=== PATIENT | male | born 1960 | race Caucasian/White ===

== ENCOUNTER 2018-12-01 14:27 | Emergency (ER) | payer OTHER ==
[2018-12-01] MEDS ORDERED: ASPIRIN 81 MG CHEWABLE TABLETS PO ONE (14:53)
[2018-12-01] MEDS ORDERED: ASPIRIN 81 MG CHEWABLE TABLETS ONE (15:03)
[2018-12-01 15:04] VITALS: BMI 19.9
--- NOTE | 2018-12-01 15:20 | PDOC ---
History of Present Illness - General Chief Complaint: Respiratory Stated Complaint: SHORT OF BREATH Time Seen by Provider: 12/01/18 14:32 History Source: Patient Exam Limitations: No Limitations - History of Present Illness Initial Comments: 12/01/18 15:15 Pt is a 58yo M with PMH of MM, Asthma, Neuropathy presenting to ED with complaints of SOB, chest pain and feet pain. Pt states he woke up this morning from a bad dream and felt short of breath and having substernal chest pain which feels like a pressure with some pain into the L arm and nausea. He thought he was having a panic attack and "took 1/3 of xananx". He did not feel better and decided to come to the ED. He denies fevers, chills, cough, sore throat, palpitations, abdominal pain, v/d/c, urinary symptoms, headache. He is mainly concerned about the pain in his feet which he states is the neuropathy acting up. Last chemotherapy was 2 years ago but was told protein levels were rising recently. Has an appointment on Tuesday with his oncologist at [facility]. PMD: PMH: see hpi PSH: back surgery, appendectomy Meds: oxycodone 10 Allergies: PCN, APAP Social: smokes around 3 cigarettes/day Past History - Past Medical History Allergies/Adverse Reactions: Allergies Allergy/AdvReac Type Severity Reaction Status Date / Time acetaminophen Allergy Intermediate Hives Verified 12/01/18 14:31 Penicillins Allergy Intermediate Vomiting Verified 12/01/18 14:31 Home Medications: Ambulatory Orders Lorazepam 2 mg PO BID 12/01/18 Oxycodone HCl 10 mg PO QID 12/01/18 Asthma: Yes COPD: No Other medical history: MULTIPLE MYELOMA NEUROPATHY - Surgical History Appendectomy: Yes - Suicide/Smoking/Psychosocial Hx Smoking History: Current some day smoker Have you smoked in the past 12 months: Yes Information on smoking cessation initiated: Yes Hx Alcohol Use: Yes (OCCASSIONAL) Drug/Substance Use Hx: No Review of Systems - Review of Systems Constitutional: No: Chills, Fever HEENTM: No: Symptoms Reported Respiratory: Yes: Cough, Shortness of Breath. No: Wheezing Cardiac (ROS): Yes: Chest Pain. No: Lightheadedness, Palpitations, Syncope ABD/GI: Yes: Nausea. No: Constipated, Diarrhea, Vomiting, Abdominal cramping : No: Symptoms Reported Musculoskeletal: No: Symptoms Reported Integumentary: No: Symptoms Reported Neurological: No: Symptoms reported *Physical Exam - Vital Signs Last Vital Signs Temp Pulse Resp BP Pulse Ox 98.1 F 89 20 162/103 H 100 12/01/18 14:30 12/01/18 14:30 12/01/18 14:30 12/01/18 14:30 12/01/18 14:30 - Physical Exam General Appearance: Yes: Nourished, Appropriately Dressed. No: Apparent Distress HEENT: positive: EOMI, ELMER, TMs Normal, Pharynx Normal Neck: positive: Trachea midline, Supple. negative: Lymphadenopathy (R), Lymphadenopathy (L) Respiratory/Chest: positive: Lungs Clear, Normal Breath Sounds. negative: Crackles, Rales, Rhonchi, Stridor, Wheezing Cardiovascular: positive: Regular Rhythm, Regular Rate, S1, S2. negative: Edema , JVD, Murmur Vascular Pulses: Carotid (R): 2+, Carotid (L): 2+, Dorsalis-Pedis (R): 2+, Doralis-Pedis (L): 2+ Gastrointestinal/Abdominal: positive: Normal Bowel Sounds, Soft. negative: Distended, Guarding, Rebound, Tenderness Musculoskeletal: positive: Normal Inspection. negative: CVA Tenderness Extremity: positive: Normal Capillary Refill, Pelvis Stable Integumentary: positive: Normal Color, Dry, Warm Neurologic: positive: medical transcription radiology II-XII NML intact, Fully Oriented, Alert, Normal Mood/ Affect, Normal Response, Motor Strength 5/5 Moderate Sedation - Procedure Monitoring Vital Signs: Procedure Monitoring Vital Signs Temperature 98.1 F 12/01/18 14:30 Pulse Rate 89 12/01/18 14:30 Respiratory Rate 20 12/01/18 14:30 Blood Pressure 162/103 H 12/01/18 14:30 O2 Sat by Pulse Oximetry (%) 100 12/01/18 14:30 Heart Score/ECG Review - History History: Slightly suspicious - Electrocardiogram EKG: Non specific repolarization disturbance - Age Age: 45-65 - Risk Factors Risk Factors Heart Score: Yes Smoking History Based on the list above the patient has:: 1-2 risk factors - Troponin Troponin: </= normal limit - Score Heart Score - Total: 3 ED Treatment Course - LABORATORY CBC & Chemistry Diagram: 12/01/18 15:15 12/01/18 15:15 - RADIOLOGY Radiology Studies Ordered: Category Date Time Status CHEST PA & LAT [RAD] Stat Radiology 12/01/18 14:36 Completed - Medications Given in the ED: ED Medications Discontinued Medications Generic Name Dose Route Start Last Admin Trade Name Trace PRN Reason Stop Dose Admin Aspirin 162 mg 12/01/18 14:53 12/01/18 15:06 Asa - PO 12/01/18 14:54 162 mg ONCE ONE Administration Medical Decision Making - Medical Decision Making 12/01/18 15:21 Pt is a 58yo M with PMH of MM, Asthma, Neuropathy presenting to ED with complaints of SOB, chest pain and feet pain. Pt states he woke up this morning from a bad dream and felt short of breath and having substernal chest pain which feels like a pressure with some pain into the L arm and nausea. He thought he was having a panic attack and "took 1/3 of xananx". He did not feel better and decided to come to the ED. He denies fevers, chills, cough, sore throat, palpitations, abdominal pain, v/d/c, urinary symptoms, headache. He is mainly concerned about the pain in his feet which he states is the neuropathy acting up. Last chemotherapy was 2 years ago but was told protein levels were rising recently. Has an appointment on Tuesday with his oncologist at [facility]. Vitals: wnl PE: normal exam ddx includes but not limited to acs, pna, pe, ptx, carditis, viral illness, GERD given pt history, pe is of concern, d-dimer sent. ACS workup ordered. ASA 162 given. PT reports feeling better after ASA CXR- no acute pathology EKG: nsr. no janes or depressions. no signs of acute ischema Labs: wnl. normal d-dimer, normal troponin. HEART score 3. Will order second troponin. Second trop negative. Pt is hemodynamically stable, low HEART score. Can be dc home. Pt has pmd and fitter armament. recommended follow up. *DC/Admit/Observation/Transfer Diagnosis at time of Disposition: Shortness of breath Chest pain Qualifiers: Chest pain type: unspecified Qualified Code(s): R07.9 - Chest pain, unspecified - Discharge Dispostion Disposition: HOME Condition at time of disposition: Improved Decision to Admit order: No - Referrals - Patient Instructions Printed Discharge Instructions: DI for Shortness of Breath, DI for Chest Pain Additional Instructions: You were seen here in the emergency room for chest pain and shortness of breath. Your lab tests, EKG and xray were normal. I highly recommend you make an appointment with your primary care doctor and/or [facility] for further evaluation and management of your symptoms. You can take 81mg Aspirin when you feel the chest pains. Remember to keep your appointment with your oncologist on Tuesday. Come back to the emergency room if chest pain returns, you feel short of breath , you cough up blood, develop fever, you pass out or if any new concerning symptom develops. Thank you - Post Discharge Activity
[2018-12-01 15:41] LABS: INR 1.11 (0.82-1.09); PROTHROMBIN TIME (PATIENT) 12.4 SEC (10.2-13.0)
[2018-12-01 16:03] LABS: BASO % 0.4 % (0-2.0); EOS % 0.7 % (0-4.5); HEMATOCRIT 46.8 % (35.4-49); HEMOGLOBIN 15.6 GM/dl (11.7-16.9); LYMPH % 23.7 % (8-40); MCH 31.9 pg (25.7-33.7); MCHC 33.4 g/dl (32.0-35.9); MEAN CELL VOLUME 95.5 fl (80-96); MEAN PLT VOLUME 7.8 fl (7.5-11.1); MONO % 4.3 % (3.8-10.2); NEUT % 70.9 % (42.8-82.8); PLATELET COUNT 237 K/MM3 (134-434); RBC 4.89 M/mm3 (4.00-5.60); RDW 14.6 % (11.9-15.9); WHITE BLOOD COUNT 7.9 K/mm3 (4.0-10.8)
[2018-12-01 16:08] LABS: ALBUMIN 4.6 g/dl (3.4-5.0); ALK PHOS 100 U/L (45-117); ANION GAP 8 MMOL/L (8-16); BLOOD UREA NITROGEN 11 mg/dl (7-18); CALCIUM 9.8 mg/dl (8.5-10); CHLORIDE 104 mmol/L (98-107); CO2 22 mmol/L (21-32); CREATININE 0.9 mg/dl (0.55-1.3); GLUCOSE,RANDOM 95 mg/dl (74-106); POTASSIUM 3.5 mmol/L (3.5-5.1); SGOT/AST 22 U/L (15-37); SGPT/ALT 16 U/L (13-61); SODIUM 134 mmol/L (136-145)
--- NOTE | 2018-12-01 18:33 | PDOC ---
Attending Attestation - Resident Resident Name: Chanel Peacock - ED Attending Attestation I have performed the following: I have examined & evaluated the patient, The case was reviewed & discussed with the resident, I agree w/resident's findings & plan - HPI HPI: 12/01/18 18:30 58 YOM with h/o multiple myeloma in remission presenting with CP and SOB since this morning, substernal chest pressure, a/w left arm discomfort. Unable to take a deep breath. +nausea. no cough or congestion. had PNA previously with similar sx at [facility], has been on courses of Zpak Last chemo ~2 years ago. Has oncologist at [facility] 12/01/18 18:31 - Physicial Exam PE: 12/01/18 18:30 NAD, well appearing, PERRL, EOMI, MMM, nl conjunctiva, anicteric; neck supple. lungs clear, RRR, abdomen soft nontender. GODINEZ x4, no focal neuro deficits. No peripheral edema. normal color for ethnicity, WWP. - Medical Decision Making 12/01/18 18:31 VS with mild hypertension, normal HR DDx chest pain: ACS, coronary vasospasm, NSTEMI, arrhythmia, unstable angina, PE , dissection, PUD, esophageal spasm, GERD, gastritis, costochondritis, pneumonia , pleurisy, pericarditis/myocarditis. dehydration, electrolyte/metabolic derangements. EKG normal sinus rhythm, no interval abnormalities, narrow QRS, ST and T wave segments and morphology normal. Nonspecific T wave abnormalities, lead III only with some flattening, no contiguous lead changes heart score 1 low risk. chest pain free well appearing, no other sx. EKG nonischemic trops neg x2, less likely cardiac remainder of labs and lytes normal Dimer neg, so unlikely PE or dissection with clinical findings. no sob or syncope/dizziness. Pt informed of my clinical impression, treatment recommendations and disposition plan. All questions answered to patient's satisfaction and expressed understanding and comfort with this. Reasons for returning to the ED sooner discussed with the patient otherwise, follow up with primary care physician. At the time of discharge, the patient is alert, clinically improved, tolerating po and verbalizes understanding of instructions. Patient does not suffer from an acute life-threatening medical condition at this time he is safe for outpatient follow-up. 12/01/18 18:32 12/01/18 18:33 Heart Score/ECG Review - History History: Slightly suspicious - Electrocardiogram EKG: Normal - Age Age: 45-65 - Risk Factors Based on the list above the patient has:: No risk factors known - Troponin Troponin: </= normal limit - Score Heart Score - Total: 1 - ECG Impressions Normal ECG: Yes Comment:: 12/01/18 18:32 EKG normal sinus rhythm, no interval abnormalities, narrow QRS, ST and T wave segments and morphology normal. Nonspecific T wave abnormalities, lead III only with some flattening, no contiguous lead changes
[2018-12-01 18:49] VITALS: BP 146/93; PULSE 86; TEMP 98.3
--- NOTE | 2018-12-02 16:52 | EKG ---
Test Reason : Blood Pressure : / mmHG Vent. Rate : 080 BPM Atrial Rate : 080 BPM P-R Int : 154 ms QRS Dur : 096 ms QT Int : 380 ms P-R-T Axes : 035 005 031 degrees QTc Int : 438 ms NORMAL SINUS RHYTHM NORMAL ECG NO PREVIOUS ECGS AVAILABLE Confirmed by Dolly Gonzales ([id number]) on 12/02/2018 4:51:37 PM Referred By: MD SANTOYO Confirmed By:Dolly Gonzales
== END 2018-12-01 18:55 | disposition home or self-care (01) ==
LOC: FER 14:27
DX: R07.9 Chest pain, unspecified (principal); J45.909 Unspecified asthma, uncomplicated; G62.9 Polyneuropathy, unspecified; F17.210 Nicotine dependence, cigarettes, uncomplicated; C90.00 Multiple myeloma not having achieved remission
CPT/HCPCS: 36415; 71046-TC-FY; 80053; 83735; 84484; 85025; 85379; 85610; 93005; 99283-25